=== PATIENT | female | born 1985 | race Caucasian/White ===

== ENCOUNTER 2016-09-10 14:40 | Emergency (ER) | payer SELFPAY ==
[~2016-09-10] VITALS: Ht 162.6 cm; Wt 90.7 kg
[~2016-09-10 14:40] MED LIST: BENZ11.92 MM; CLIN150C17 PO; CLIN300C11 PO; CRUT1EAC7 MC; Flexeril PO; HYDR-3729 PO; HYDR-757 PO; IBUP-1780 PO; IBUP-2055 PO; L.AC1CAP6 PO; NYST1000 PO; ONDA8TAB9 PO; OXYC-202 PO; OXYC-465 PO; TRAM50TA2 PO; VANC125C11 PO
--- OUTSIDE RECORDS SUMMARY | 2016-09-10 14:45 | XMS REPORT ---
Author Author JAMES BARON [facility] D[facility] Address Unknown Care Team Providers Care Detective Private Eye Name Role Phone JAMES BARON Unavailable PROBLEMS Type Condition ICD9-CM Code [id number] Code Onset Dates Condition Status SNOMED Code Assessment Dental caries K02.9 May, Active [id number] ALLERGIES Substance Reaction Event Type Date Status Penicillin V Potassium Unknown Drug Allergy May, Active SOCIAL HISTORY No smoking Hx information available PLAN OF CARE VITAL SIGNS Blood pressure systolic 128 mmHg 2016-05-12 Blood pressure diastolic 90 mmHg 2016-05-12 MEDICATIONS Medication Instructions Dosage Frequency Start Date End Date Duration Status [place] 5-325 MG Orally every 6 hrs 1 tablet as needed 6h 4 days Active [place] 5-325 MG Orally every 6 hrs 1 tablet as needed 6h 4 days Active RESULTS No Results PROCEDURES Procedure Date Ordered Related Diagnosis Body Site EXTRAC ERUPTED TOOTH/EXPOSED ROOT May 12, 2016 IMMUNIZATIONS No Known Immunizations
--- NOTE | 2016-09-10 15:06 | ED General ---
General Chief Complaint: Dizziness/Syncope Stated Complaint: POSS SEIZURE Source of Information: Patient Exam Limitations: No Limitations History of Present Illness Time Seen by Provider: 15:04 Initial Comments To ER with reports of possible seizure. She states that she was at work today when she became very nauseous and "blacked out". She never vomited or felt the floor. Her nurse at work told her that she may have had a seizure. She states that she does have a seizure history in that her seizures are brought on by "anxiety". 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 She has not missed any doses and does not feel anxious. Timing/Duration: 1/2 Hour Severity: Moderate Allergies and Home Medications Allergies Coded Allergies: latex (Verified Allergy, Severe, RASH/HIVES/SWELLING, 12/10/15) Penicillins (Verified Allergy, Unknown, 12/10/15) Home Medications #10 5 MG PO TID PRN PRN PAIN Prescribed by: HECTOR LOPEZ on 04/29/16 1805 (Reported) Alprazolam 1 Mg Tablet 1 MG PO BID (Reported) Benzocaine 11.9 Gm Paste..g. #1 11.9 GM MM QID Prescribed by: VALENTIN SALGUERO on 12/21/15 1030 Bupropion HCl 150 Mg Tablet.er 150 MG PO (Reported) Ibuprofen 200 Mg Tablet 400 MG PO BID PRN PRN PAIN (Reported) Nystatin 100,000 Unit/1 Ml Oral.susp #1 100,000 UNIT PO QID 1 tsp swish and swallow four times daily for 7 days Prescribed by: VALENTIN SALGUERO on 12/21/15 1032 Ondansetron 8 Mg Tab.rapdis 8 MG PO Q20M (Reported) Oxycodone HCl/Acetaminophen 1 Each Tablet #60 1 TAB PO Q4H PRN PRN PAIN Prescribed by: NISHANT BHATIA on 12/21/15 0711 Vancomycin HCl 125 Mg Capsule #32 125 MG PO QID Prescribed by: NISHANT BHATIA on 12/21/15 0711 Constitutional: see HPI EENTM: see HPI Respiratory: no symptoms reported Cardiovascular: no symptoms reported Gastrointestinal: No abdominal pain, nauseaNo vomiting Genitourinary: no symptoms reported Musculoskeletal: no symptoms reported Skin: no symptoms reported Psychiatric/Neurological: No Symptoms Reported Past Ifwtliw-Ttzthg-Ilwqfq Hx Patient Social History Alcohol Use: Occasionally Uses Recreational Drug Use: No Smoking Status: Never a Smoker Recent Foreign Travel: No Contact w/Someone Who Travel: No Recent Hopitalizations: No Immunizations Up To Date Date of Influenza Vaccine: Apr 20, 2016 Seasonal Allergies Seasonal Allergies: No Surgeries HX Surgeries: Yes (D&C, KNEE) Surgeries: Abdominal, Appendectomy, Section, Orthopedic Respiratory Hx Respiratory Disorders: No Cardiovascular Hx Cardiac Disorders: No Neurological Hx Neurological Disorders: Yes ("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") Reproductive System Hx Reproductive Disorders: No Sexually Transmitted Disease: No HIV/AIDS: No Female Reproductive Disorders: Endometriosis Genitourinary Hx Genitourinary Disorders: Yes Genitourinary Disorders: Kidney Stones Gastrointestinal Hx Gastrointestinal Disorders: Yes (H. pylori) Gastrointestinal Disorders: Diverticulosis, Gall Bladder Disease Musculoskeletal Hx Musculoskeletal Disorders: Yes (SCIATICA) Musculoskeletal Disorders: Arthritis Endocrine Hx Endocrine Disorders: No HEENT HX ENT Disorders: Yes (GLASSES) Loss of Vision: Bilateral Hearing Impairment: Denies, Hard of Hearing Cancer Hx Cancer: No Psychosocial Hx Psychiatric Problems: Yes Behavioral Health Disorders: Anxiety Integumentary HX Skin/Integumentary Disorder: No Blood Transfusions Hx Blood Disorders: Yes (ANEMIA) Adverse Reaction to a Blood Tr: No (HAS HAD BLOOD WITH NO PROBLEMS) Family Medical History Significant Family History: No Pertinent Family Hx, Diabetes, Hypertension Physical Exam Vital Signs Vital Sign - Last 12Hours 09/10/16 14:57 Temp 97.2 Pulse 86 Resp 16 B/P 138/104 Pulse Ox 98 Capillary Refill : General Appearance: No Apparent Distress WD/WN Eyes: Bilateral Eye EOMI, Bilateral Eye Normal Inspection, Bilateral Eye PERRL HEENT: PERRL/EOMI TMs Normal Neck: Full Range of Motion Normal Inspection Respiratory: Normal Breath Sounds No Accessory Muscle Use No Respiratory Distress Cardiovascular: Regular Rate, Rhythm Normal Peripheral Pulses Gastrointestinal: Non Tender Soft Extremity: Normal Capillary Refill Normal Inspection Neurologic/Psychiatric: Alert Oriented x3 Skin: Normal Color Warm/Dry Progress/Results/Core Measures Results/Orders Lab Results Laboratory Tests Test 09/10/16 15:00 09/10/16 15:39 Range/Units Alanine Aminotransferase (ALT/SGPT) 26 0-55 U/L Albumin 4.1 3.2-4.5 G/DL Alkaline Phosphatase 56 40-136 U/L Anion Gap 9 5-14 MMOL/L Aspartate Amino Transf (AST/SGOT) 18 5-34 U/L BUN/Creatinine Ratio 12 Basophils # (Auto) 0.0 0.0-0.1 10^3/uL Basophils (%) (Auto) 0 0-10 % Blood Urea Nitrogen 9 7-18 MG/DL Calcium Level 9.1 8.5-10.1 MG/DL Carbon Dioxide Level 20 L 21-32 MMOL/L Chloride Level 110 H 98-107 MMOL/L Creatinine 0.76 0.60-1.30 MG/DL Eosinophils # (Auto) 0.3 0.0-0.3 10^3/uL Eosinophils (%) (Auto) 3 0-10 % Estimat Glomerular Filtration Rate > 60 Glucose Level 97 70-105 MG/DL Hematocrit 41 35-52 % Hemoglobin 14.1 11.5-16.0 G/DL Lymphocytes # (Auto) 1.7 1.0-4.0 X 10^3 Lymphocytes (%) (Auto) 18 12-44 % Mean Corpuscular Hemoglobin 30 25-34 PG Mean Corpuscular Hemoglobin Concent 35 32-36 G/DL Mean Corpuscular Volume 87 80-99 FL Mean Platelet Volume 11.2 H 7.4-10.4 FL Monocytes # (Auto) 0.7 0.0-1.0 X 10^3 Monocytes (%) (Auto) 7 0-12 % Neutrophils # (Auto) 6.9 1.8-7.8 X 10^3 Neutrophils (%) (Auto) 72 42-75 % Platelet Count 217 130-400 10^3/uL Potassium Level 3.8 3.6-5.0 MMOL/L Red Blood Count 4.66 4.35-5.85 10^6/uL Red Cell Distribution Width 12.9 10.0-14.5 % Serum Alcohol < 10 <10 MG/DL Sodium Level 139 135-145 MMOL/L Total Bilirubin 0.4 0.1-1.0 MG/DL Total Protein 7.0 6.4-8.2 G/DL White Blood Count 9.6 4.3-11.0 10^3/uL Ur Tricyclic Antidepressants Screen NEGATIVE NEGATIVE Urine Amphetamines Screen NEGATIVE NEGATIVE Urine Bacteria MODERATE H /HPF Urine Barbiturates Screen NEGATIVE NEGATIVE Urine Benzodiazepines Screen POSITIVE H NEGATIVE Urine Bilirubin NEGATIVE NEGATIVE Urine Cannabinoids Screen NEGATIVE NEGATIVE Urine Casts NONE /LPF Urine Clarity SLIGHTLY CLOUDY Urine Cocaine Screen NEGATIVE NEGATIVE Urine Color YELLOW Urine Crystals NONE /LPF Urine Culture Indicated NO Urine Glucose (UA) NEGATIVE NEGATIVE Urine Ketones NEGATIVE NEGATIVE Urine Leukocyte Esterase 1+ H NEGATIVE Urine Methadone Screen NEGATIVE NEGATIVE Urine Methamphetamines Screen NEGATIVE NEGATIVE Urine Mucus NEGATIVE /LPF Urine Nitrite NEGATIVE NEGATIVE Urine Opiates Screen NEGATIVE NEGATIVE Urine Oxycodone Screen NEGATIVE NEGATIVE Urine Phencyclidine Screen NEGATIVE NEGATIVE Urine Propoxyphene Screen NEGATIVE NEGATIVE Urine Protein NEGATIVE NEGATIVE Urine RBC NONE /HPF Urine RBC (Auto) NEGATIVE NEGATIVE Urine Specific [place] 1.010 L 1.016-1.022 Urine Squamous Epithelial Cells 0-2 /HPF Urine Urobilinogen NORMAL NORMAL MG/DL Urine WBC NONE /HPF Urine pH 7 5-9 My Orders Orders-HECTOR LOPEZ APRN Cbc With Automated Diff (09/10/16 15:02) Comprehensive Metabolic Panel (09/10/16 15:02) Ua Culture If Indicated (09/10/16 15:02) Urine Bedside (09/10/16 15:02) Drug Screen Stat (Urine) (09/10/16 15:02) Alcohol (09/10/16 15:02) Saline Lock/Iv-Start (09/10/16 15:02) Ns Iv 1000 Ml (Sodium Chloride 0.9%) (09/10/16 15:15) Ondansetron Injection (Zofran Injectio (09/10/16 15:15) Medications Given in ED Current Medications Medications Dose Ordered Sig/Graeme Route Start Time Stop Time Status Last Admin Dose Admin Ondansetron HCl 4 mg ONCE ONCE IVP 09/10/16 15:15 09/10/16 15:16 DC 09/10/16 15:39 4 MG Vital Signs/I&O Vital Sign - Last 12Hours 09/10/16 14:57 Temp 97.2 Pulse 86 Resp 16 B/P 138/104 Pulse Ox 98 Departure Impression Impression: Primary Impression: Nausea Additional Impression: Weak Disposition: 01 HOME, SELF-CARE Condition: Stable Departure-Patient Inst. Decision time for Depature: 16:24 Referrals: [facility] (PCP/Family) Primary Care Physician Patient Instructions: NO INSTRUCTIONS GIVEN Add. Discharge Instructions: 1. Return to ER for any concerns 2. Nausea medication as needed 3. All discharge instructions reviewed with patient and/or family. Voiced understanding. Scripts Ondansetron (Zofran Odt)8 Mg Tab.rapdis8 Mg PO Q4H PRN NAUSEA/VOMITING #10 TAB Prov:HECTOR LOPEZ APRN 09/10/16 Work/School Note: Work Release Form Date Seen in the Emergency Department: Sep 10, 2016 Return to Work: Sep 12, 2016 Restrictions: No Restrictions HECTOR LOPEZ APRN Sep 10, 2016 15:06
[2016-09-10] MEDS ORDERED: BUPR150T9 PO (15:09)
[2016-09-10] MEDS ORDERED: ALPR1TAB2 PO (15:09)
[2016-09-10] MEDS ORDERED: SEROQUEL (15:09)
[2016-09-10 15:15] LABS: BASOPHILS % (AUTO) 0 % (0-10); EOSINOPHILS # (AUTO) 0.3 10^3/uL (0.0-0.3); EOSINOPHILS % (AUTO) 3 % (0-10); LYMPHOCYTES # (AUTO) 1.7 X 10^3 (1.0-4.0); LYMPHOCYTES % (AUTO) 18 % (12-44); MEAN CORPUSCULAR HEMOGLOBIN 30 PG (25-34); MEAN CORPUSCULAR HGB CONC 35 G/DL (32-36); MEAN CORPUSCULAR VOLUME 87 FL (80-99); MEAN PLATELET VOLUME 11.2 FL (7.4-10.4); MONOCYTES # (AUTO) 0.7 X 10^3 (0.0-1.0); MONOCYTES % (AUTO) 7 % (0-12); NEUTROPHILS # (AUTO) 6.9 X 10^3 (1.8-7.8); NEUTROPHILS % (AUTO) 72 % (42-75); PLATELET COUNT 217 10^3/uL (130-400); RED BLOOD COUNT 4.66 10^6/uL (4.35-5.85); RED CELL DISTRIBUTION WIDTH 12.9 % (10.0-14.5); WHITE BLOOD COUNT 9.6 10^3/uL (4.3-11.0)
[2016-09-10 15:32] LABS: ALANINE AMINOTRANSFERASE 26 U/L (0-55); ALBUMIN 4.1 G/DL (3.2-4.5); ANION GAP 9 MMOL/L (5-14); ASPARTATE AMINO TRANSFERASE 18 U/L (5-34); BILIRUBIN,TOTAL 0.4 MG/DL (0.1-1.0); BLOOD UREA NITROGEN 9 MG/DL (7-18); BUN/CREATININE RATIO 12; CALCIUM 9.1 MG/DL (8.5-10.1); CARBON DIOXIDE 20 MMOL/L (21-32); CHLORIDE 110 MMOL/L (98-107); CREATININE SERUM 0.76 MG/DL (0.60-1.30); GFR ESTIMATED > 60; GLUCOSE 97 MG/DL (70-105); POTASSIUM 3.8 MMOL/L (3.6-5.0); SODIUM 139 MMOL/L (135-145)
[2016-09-10 15:34] LABS: ALCOHOL < 10 MG/DL (<10)
[2016-09-10] MEDS: ONDANSETRON 4 MG/2 ML (SDV) Z0FRAN IVP ONE (15:39)
[2016-09-10] MEDS: NS IV 1000 ML 1,000 ML IV SCH (15:40)
[2016-09-10 16:01] LABS: BILIRUBIN,URINE NEGATIVE (NEGATIVE); KETONES,URINE NEGATIVE (NEGATIVE); LEUKOCYTE ESTERASE ,URINE 1+ (NEGATIVE); NITRITE,URINE NEGATIVE (NEGATIVE); PH,URINE 7 (5-9); PROTEIN,URINE NEGATIVE (NEGATIVE); UROBILINOGEN,URINE NORMAL (NORMAL)
[2016-09-10 16:02] LABS: SQUAMOUS EPITHELIAL CELL,UR 0-2 /HPF
[2016-09-10] MEDS ORDERED: ONDA8TAB9 PO (16:25)
[2016-09-10 16:33] VITALS: BP 124/89
== END 2016-09-10 16:32 | disposition home or self-care (01) ==
LOC: EDUNIT# 14:40 → ER 14:42
DX: R11.0 Nausea (principal); R53.1 Weakness; F41.9 Anxiety disorder, unspecified; Z79.899 Other long term (current) drug therapy
CPT/HCPCS: 36415; 80053; 80306; 80320; 81000; 84703; 85025; 96374

== ENCOUNTER 2016-11-15 10:07 | Emergency (ER) | payer SELFPAY ==
[~2016-11-15] VITALS: Ht 162.6 cm; Wt 90.7 kg
[~2016-11-15 10:07] MED LIST changes: +ALPR1TAB2 PO; +BUPR150T9 PO; +SEROQUEL
[2016-11-15] MEDS ORDERED: TOPI50TA37 PO (10:54)
[2016-11-15 11:36] LABS: BILIRUBIN,URINE NEGATIVE (NEGATIVE); KETONES,URINE NEGATIVE (NEGATIVE); LEUKOCYTE ESTERASE ,URINE NEGATIVE (NEGATIVE); NITRITE,URINE NEGATIVE (NEGATIVE); PH,URINE 7 (5-9); PROTEIN,URINE NEGATIVE (NEGATIVE); UROBILINOGEN,URINE NORMAL (NORMAL)
--- NOTE | 2016-11-15 11:38 | ED GI ---
General Chief Complaint: Abdominal/GI Problems Stated Complaint: ABD PAIN/CRAMPING Nursing Triage Note: C/O ABD ISSUES LASTING FOR A FEW WEEKS W/DIARRHEA. TOOK IMODIUM ET ZOFRAN, STATES IT DID NOT HELP. C/O OF NAUSEA ET WEAKNESS STARTING TODAY. Sepsis Screen: No Definite Risk Source of Information: Patient Exam Limitations: No Limitations History of Present Illness Time Seen By Provider: 11:37 Initial Comments To ER with watery diarrhea with occasional blood for the past 3 weeks. She has diffuse abdominal cramping she states that she's also been nauseated. She does have a history of C. difficile last year. She states that one month prior to the onset of this diarrhea she finished a course of antibiotics for a tooth infection. Timing/Duration: Intermittent Severity/Quality: Moderate Location: Generalized Abdomen Radiation: No Radiation Activities at Onset: None Associated Symptoms: Nausea/Vomiting Allergies and Home Medications Allergies Coded Allergies: latex (Verified Allergy, Severe, RASH/HIVES/SWELLING, 12/10/15) Penicillins (Verified Allergy, Unknown, 12/10/15) Home Medications Alprazolam 1 Mg Tablet, 1 MG PO BID, (Reported) Bupropion HCl 150 Mg Tablet.er, 150 MG PO, (Reported) Ibuprofen 200 Mg Tablet, 400 MG PO BID PRN for PAIN, (Reported) Lactobacillus Combination No.4 1 Each Capsule, 1 EACH PO TID, #21 Prescribed by: HECTOR LOPEZ on 11/15/16 1345 Metronidazole 500 Mg Tablet, 500 MG PO TID, #30 Prescribed by: HECTOR LOPEZ on 11/15/16 1345 Ondansetron 8 Mg Tab.rapdis, 8 MG PO Q20M, (Reported) Topiramate 50 Mg Tablet, 50 MG PO DAILY, (Reported) [Seroquel] , (Reported) Review of Systems Constitutional: see HPI, No chills, No fever EENTM: No Symptoms Reported Respiratory: No Symptoms Reported Cardiovascular: No Symptoms Reported Gastrointestinal: See HPI, Abdominal Pain, Denies Constipated, Diarrhea, Nausea Genitourinary: No Symptoms Reported Musculoskeletal: no symptoms reported Skin: no symptoms reported Psychiatric/Neurological: No Symptoms Reported Endocrine: No Symptoms Reported Past Ripscnl-Kmakwb-Kufpcj Hx Patient Social History Alcohol Use: Occasionally Uses Recreational Drug Use: No Smoking Status: Never a Smoker 2nd Hand Smoke Exposure: No Recent Foreign Travel: No Contact w/Someone Who Travel: No Recent Infectious Disease Expo: No Recent Hopitalizations: No Immunizations Up To Date Date of Influenza Vaccine: Apr 20, 2016 Seasonal Allergies Seasonal Allergies: No Surgeries HX Surgeries: Yes (D&C, KNEE) Surgeries: Abdominal, Appendectomy, Section, Orthopedic Respiratory Hx Respiratory Disorders: No Cardiovascular Hx Cardiac Disorders: No Neurological Hx Neurological Disorders: Yes ("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") Reproductive System : No Hx Reproductive Disorders: No Sexually Transmitted Disease: No HIV/AIDS: No Female Reproductive Disorders: Endometriosis Genitourinary Hx Genitourinary Disorders: Yes Genitourinary Disorders: Kidney Stones Gastrointestinal Hx Gastrointestinal Disorders: Yes (H. pylori) Gastrointestinal Disorders: Diverticulosis, Gall Bladder Disease Musculoskeletal Hx Musculoskeletal Disorders: Yes (SCIATICA) Musculoskeletal Disorders: Arthritis Endocrine Hx Endocrine Disorders: No HEENT HX ENT Disorders: Yes (GLASSES) Loss of Vision: Bilateral Hearing Impairment: Denies, Hard of Hearing Cancer Hx Cancer: No Psychosocial Hx Psychiatric Problems: Yes Behavioral Health Disorders: Anxiety Integumentary HX Skin/Integumentary Disorder: No Blood Transfusions Hx Blood Disorders: Yes (ANEMIA) Adverse Reaction to a Blood Tr: No (HAS HAD BLOOD WITH NO PROBLEMS) Family Medical History Significant Family History: No Pertinent Family Hx, Diabetes, Hypertension Physical Exam Vital Signs VS - Last 72 Hours, by Label 11/15/16 10:46 Temp 98.5 Pulse 97 Resp 18 B/P (MAP) 131/87 O2 Delivery Room Air Capillary Refill : Less Than 3 Seconds General Appearance: WD/WN, no apparent distress HEENT: PERRL/EOMI, normal ENT inspection Neck: non-tender, full range of motion Respiratory: no respiratory distress, no accessory muscle use Gastrointestinal: normal bowel sounds, non tender, soft Extremities: normal range of motion, non-tender Neurologic/Psychiatric: alert, normal mood/affect, oriented x 3 Skin: normal color, warm/dry Progress/Results/Core Measures Results/Orders Lab Results Laboratory Tests Test 11/15/16 11:25 11/15/16 11:50 Range/Units Urine Color YELLOW Urine Clarity SLIGHTLY CLOUDY Urine pH 7 5-9 Urine Specific [place] 1.010 L 1.016-1.022 Urine Protein NEGATIVE NEGATIVE Urine Glucose (UA) NEGATIVE NEGATIVE Urine Ketones NEGATIVE NEGATIVE Urine Nitrite NEGATIVE NEGATIVE Urine Bilirubin NEGATIVE NEGATIVE Urine Urobilinogen NORMAL NORMAL MG/DL Urine Leukocyte Esterase NEGATIVE NEGATIVE Urine RBC (Auto) NEGATIVE NEGATIVE Urine RBC NONE /HPF Urine WBC RARE /HPF Urine Squamous Epithelial Cells 5-10 /HPF Urine Crystals NONE /LPF Urine Bacteria TRACE /HPF Urine Casts NONE /LPF Urine Mucus NEGATIVE /LPF Urine Culture Indicated NO Urine Opiates Screen NEGATIVE NEGATIVE Urine Oxycodone Screen NEGATIVE NEGATIVE Urine Methadone Screen NEGATIVE NEGATIVE Urine Propoxyphene Screen NEGATIVE NEGATIVE Urine Barbiturates Screen NEGATIVE NEGATIVE Ur Tricyclic Antidepressants Screen NEGATIVE NEGATIVE Urine Phencyclidine Screen NEGATIVE NEGATIVE Urine Amphetamines Screen NEGATIVE NEGATIVE Urine Methamphetamines Screen NEGATIVE NEGATIVE Urine Benzodiazepines Screen POSITIVE H NEGATIVE Urine Cocaine Screen NEGATIVE NEGATIVE Urine Cannabinoids Screen NEGATIVE NEGATIVE White Blood Count 9.0 4.3-11.0 10^3/uL Red Blood Count 4.41 4.35-5.85 10^6/uL Hemoglobin 13.5 11.5-16.0 G/DL Hematocrit 39 35-52 % Mean Corpuscular Volume 89 80-99 FL Mean Corpuscular Hemoglobin 31 25-34 PG Mean Corpuscular Hemoglobin Concent 34 32-36 G/DL Red Cell Distribution Width 12.7 10.0-14.5 % Platelet Count 241 130-400 10^3/uL Mean Platelet Volume 10.9 H 7.4-10.4 FL Neutrophils (%) (Auto) 71 42-75 % Lymphocytes (%) (Auto) 20 12-44 % Monocytes (%) (Auto) 5 0-12 % Eosinophils (%) (Auto) 3 0-10 % Basophils (%) (Auto) 0 0-10 % Neutrophils # (Auto) 6.4 1.8-7.8 X 10^3 Lymphocytes # (Auto) 1.8 1.0-4.0 X 10^3 Monocytes # (Auto) 0.5 0.0-1.0 X 10^3 Eosinophils # (Auto) 0.3 0.0-0.3 10^3/uL Basophils # (Auto) 0.0 0.0-0.1 10^3/uL Sodium Level 138 135-145 MMOL/L Potassium Level 4.2 3.6-5.0 MMOL/L Chloride Level 111 H 98-107 MMOL/L Carbon Dioxide Level 22 21-32 MMOL/L Anion Gap 5 5-14 MMOL/L Blood Urea Nitrogen 10 7-18 MG/DL Creatinine 0.74 0.60-1.30 MG/DL Estimat Glomerular Filtration Rate > 60 BUN/Creatinine Ratio 14 Glucose Level 90 70-105 MG/DL Calcium Level 8.6 8.5-10.1 MG/DL Total Bilirubin 0.3 0.1-1.0 MG/DL Aspartate Amino Transf (AST/SGOT) 16 5-34 U/L Alanine Aminotransferase (ALT/SGPT) 23 0-55 U/L Alkaline Phosphatase 56 40-136 U/L Total Protein 6.9 6.4-8.2 G/DL Albumin 4.1 3.2-4.5 G/DL Serum Alcohol < 10 <10 MG/DL My Orders Orders - HECTOR LOPEZ BUILDING PERFORMANCE CONSULTANT Cbc With Automated Diff (11/15/16 11:28) Comprehensive Metabolic Panel (11/15/16 11:28) Ua Culture If Indicated (11/15/16 11:28) Urine Bedside (11/15/16 11:28) Saline Lock/Iv-Start (11/15/16 11:28) Drug Screen Stat (Urine) (11/15/16 11:35) Lactated Ringers (Lr 1000 Ml Iv Solution (11/15/16 11:45) C Difficile Ag + Toxin A/B. (11/15/16 11:35) Alcohol (11/15/16 11:38) Ct Abdomen/Pelvis W (11/15/16 12:19) Iohexol Injection (Omnipaque 350 Mg/Ml 1 (11/15/16 12:30) Sodium Chloride Flush (Catheter Flush Sy (11/15/16 12:30) Ns (Ivpb) (Sodium Chloride 0.9% Ivpb Bag (11/15/16 12:30) Medications Given in ED Current Medications Medications Dose Ordered Sig/Graeme Route Start Time Stop Time Status Last Admin Dose Admin Iohexol 100 ml ONCE ONCE IV 11/15/16 12:30 11/15/16 12:31 DC 11/15/16 13:15 100 ML Sodium Chloride 10 ml NEEDED PRN IV 11/15/16 12:30 11/15/16 13:15 10 ML Sodium Chloride 100 ml ONCE ONCE IV 11/15/16 12:30 11/15/16 12:31 DC 11/15/16 13:15 80 ML Vital Signs/I&O Vital Sign - Last 12Hours 11/15/16 10:46 Temp 98.5 Pulse 97 Resp 18 B/P (MAP) 131/87 O2 Delivery Room Air Blood Pressure Mean: 102 Point of Care Testing Urine -Bedside: Negative Progress Note : Progress Note 1346-unable to provide stool sample while here. ECG Initial ECG Impression Date: November 15, 2016 Departure Communication Progress Notes We will treat with Flagyl empirically pending a C. difficile stool sample given her history of C. difficile. Impression Impression: Primary Impression: Colitis presumed infectious Disposition: HOME, SELF-CARE Condition: Stable Departure-Patient Inst. Decision time for Depature: 13:23 Referrals: [facility] (PCP/Family) Primary Care Physician Patient Instructions: Diarrhea and Traveler's Diarrhea, Adult (DC) Add. Discharge Instructions: 1. Drink plenty of fluids 2. Antibiotics as directed 3. Return to ER for any concerns All discharge instructions reviewed with patient and/or family. Voiced understanding. Scripts Lactobacillus Combination No.4 (Probiotic) 1 Each Capsule 1 EACH PO TID, #21 CAP Prov: HECTOR LOPEZ BUILDING PERFORMANCE CONSULTANT 11/15/16 Metronidazole (Flagyl) 500 Mg Tablet 500 MG PO TID, #30 TAB Prov: HECTOR LOPEZ APRN 11/15/16 HECTOR LOPEZ APRN November 15, 2016 11:38
[2016-11-15] MEDS ORDERED: LACTATED RINGERS 1,000 ML IV SCH (11:45)
[2016-11-15 11:56] LABS: WBC,URINE RARE /HPF
[2016-11-15 12:00] LABS: BASOPHILS % (AUTO) 0 % (0-10); EOSINOPHILS # (AUTO) 0.3 10^3/uL (0.0-0.3); EOSINOPHILS % (AUTO) 3 % (0-10); LYMPHOCYTES # (AUTO) 1.8 X 10^3 (1.0-4.0); LYMPHOCYTES % (AUTO) 20 % (12-44); MEAN CORPUSCULAR HEMOGLOBIN 31 PG (25-34); MEAN CORPUSCULAR HGB CONC 34 G/DL (32-36); MEAN CORPUSCULAR VOLUME 89 FL (80-99); MEAN PLATELET VOLUME 10.9 FL (7.4-10.4); MONOCYTES # (AUTO) 0.5 X 10^3 (0.0-1.0); MONOCYTES % (AUTO) 5 % (0-12); NEUTROPHILS # (AUTO) 6.4 X 10^3 (1.8-7.8); NEUTROPHILS % (AUTO) 71 % (42-75); PLATELET COUNT 241 10^3/uL (130-400); RED BLOOD COUNT 4.41 10^6/uL (4.35-5.85); RED CELL DISTRIBUTION WIDTH 12.7 % (10.0-14.5)
[2016-11-15 12:20] LABS: ALANINE AMINOTRANSFERASE 23 U/L (0-55); ALBUMIN 4.1 G/DL (3.2-4.5); ANION GAP 5 MMOL/L (5-14); ASPARTATE AMINO TRANSFERASE 16 U/L (5-34); BILIRUBIN,TOTAL 0.3 MG/DL (0.1-1.0); BLOOD UREA NITROGEN 10 MG/DL (7-18); BUN/CREATININE RATIO 14; CALCIUM 8.6 MG/DL (8.5-10.1); CARBON DIOXIDE 22 MMOL/L (21-32); CHLORIDE 111 MMOL/L (98-107); CREATININE SERUM 0.74 MG/DL (0.60-1.30); GFR ESTIMATED > 60; GLUCOSE 90 MG/DL (70-105); POTASSIUM 4.2 MMOL/L (3.6-5.0); SODIUM 138 MMOL/L (135-145); TOTAL PROTEIN 6.9 G/DL (6.4-8.2)
[2016-11-15 12:23] LABS: ALCOHOL < 10 MG/DL (<10)
[2016-11-15] MEDS ORDERED: CATHETER FLUSH 10 ML SYR IV PRN (12:30)
[2016-11-15] MEDS ORDERED: IOHEXOL 350 MG/ML 100 ML (OMNIPAQUE 350) VIAL IV ONE (12:30)
[2016-11-15] MEDS ORDERED: NS 100 ML (IVPB) BAG IV ONE (12:30)
--- NOTE | 2016-11-15 13:39 | Diagnostic Imaging Report ---
PROCEDURE: CT abdomen and pelvis with contrast. TECHNIQUE: Multiple contiguous axial images were obtained through the abdomen and pelvis after administration of intravenous contrast. INDICATION: Abdominal pain and cramping. Diarrhea. Vomiting. COMPARISON: 12/09/2015. FINDINGS: Included views of the lung bases are clear. CT abdomen: Normal appendix cannot be adequately identified, but appears to be surgically absent. Small bowel loops are nondistended. The kidneys, adrenal glands, spleen, pancreas, and liver have a normal CT appearance. There is no loculated fluid collection, free fluid or free air within the abdomen. No abnormal mesenteric or retroperitoneal adenopathy is seen. Bony structures show no acute abnormalities. CT pelvis: Urinary bladder is grossly unremarkable. There is a small amount of free fluid within the pelvis. No loculated fluid collection or free air is identified. Bony structures show no acute abnormalities. IMPRESSION: 1. Small amount of free fluid in the pelvis, which may be physiologic. 2. No loculated fluid collection or free air within the abdomen or pelvis. 3. No other acute abnormalities within the abdomen or pelvis. Dictated by: Dictated on workstation # [id number]
[2016-11-15] MEDS ORDERED: LACT1CAP74 PO (13:45)
[2016-11-15] MEDS ORDERED: METR500T PO (13:45)
[2016-11-15 14:01] VITALS: BP 131/87
== END 2016-11-15 14:01 | disposition home or self-care (01) ==
LOC: EDUNIT# 10:07 → ER 10:09
DX: K52.9 Noninfective gastroenteritis and colitis, unspecified (principal); R11.0 Nausea; K57.30 Diverticulosis of large intestine without perforation or abscess without bleeding
CPT/HCPCS: 36415; 74177; 80053; 80306; 80320; 81000; 84703; 85025; 96360

== ENCOUNTER 2019-08-28 19:43 | Emergency (ER) | payer OTHER ==
[~2019-08-28] VITALS: Ht 165 cm; Wt 110.0 kg
[~2019-08-28 19:43] MED LIST changes: +HYDR-4226 PO; -HYDR-757 PO; -IBUP-2055 PO; +IBUP-2473 PO; +LACT1CAP74 PO; +METR500T PO; -OXYC-202 PO; +OXYC1TAB12 PO; +TOPI50TA37 PO; -TRAM50TA2 PO; +TRM50T PO
--- NOTE | 2019-08-28 20:13 | NUR ---
pt to [facility]. health.
--- NOTE | 2019-08-28 20:41 | ED Upper Extremity ---
General Chief Complaint: Laceration Stated Complaint: LEFT HAND LACERATION Nursing Triage Note: left 5th finger laceration. Nursing Sepsis Screen: No Definite Risk Source: patient Exam Limitations: no limitations History of Present Illness Date Seen by Provider: Aug 28, 2019 Time Seen by Provider: 20:40 Initial Comments Laceration left pinky finger from safety knife at work at [employer]. Tetanus up-to-date. Onset: just prior to arrival Severity: mild Pain/Injury Location: left 5th finger Modifying Factors: Worse With Movement Allergies and Home Medications Allergies Coded Allergies: latex (Verified Allergy, Severe, RASH/HIVES/SWELLING, 12/10/15) Penicillins (Verified Allergy, Unknown, 12/10/15) Home Medications Alprazolam 1 Mg Tablet, 1 MG PO BID, (Reported) Ibuprofen 200 Mg Tablet, 400 MG PO BID PRN for PAIN, (Reported) Lactobacillus Combination No.4 1 Each Capsule, 1 EACH PO TID Prescribed by: HECTOR LOPEZ on 11/15/16 1345 Metronidazole 500 Mg Tablet, 500 MG PO TID Prescribed by: HECTOR LOPEZ on 11/15/16 1345 Ondansetron 8 Mg Tab.rapdis, 8 MG PO Q20M, (Reported) Topiramate 50 Mg Tablet, 50 MG PO DAILY, (Reported) Patient Home Medication List Home Medication List Reviewed: Yes Review of Systems Constitutional: see HPI EENTM: see HPI Respiratory: no symptoms reported Cardiovascular: no symptoms reported Genitourinary: no symptoms reported Musculoskeletal: no symptoms reported Skin: see HPI Psychiatric/Neurological: No Symptoms Reported Past Zayqzjt-Zyohtt-Olrqfm Hx Patient Social History Alcohol Use: Occasionally Uses Number of Drinks Today: Alcohol Beverage of Choice: Wine Recreational Drug Use: No Smoking Status: Never a Smoker 2nd Hand Smoke Exposure: No Recent Foreign Travel: No Contact w/Someone Who Travel: No Recent Infectious Disease Expo: No Recent Hopitalizations: No Physical Abuse: No Sexual Abuse: No Mistreated: No Fear: No Immunizations Up To Date Tetanus Booster (TDap): Less than 5yrs Date of Influenza Vaccine: Apr 20, 2016 Seasonal Allergies Seasonal Allergies: No Past Medical History Surgeries: Yes (D&C, KNEE) Abdominal, Appendectomy, Section, Orthopedic Respiratory: No Cardiac: No 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") Seizure Disorder : No Reproductive Disorders: No Female Reproductive Disorders: Endometriosis Sexually Transmitted Disease: No HIV/AIDS: No Genitourinary: Yes Kidney Stones Gastrointestinal: Yes Diverticulosis, Gall Bladder Disease Musculoskeletal: Yes Arthritis Endocrine: No HEENT: Yes Loss of Vision: Bilateral Hearing Impairment: Denies, Hard of Hearing Cancer: Yes Cervical Psychosocial: Yes Anxiety Integumentary: No Blood Disorders: Yes (ANEMIA) Adverse Reaction/Blood Tranf: No Family Medical History No Pertinent Family Hx, Diabetes, Hypertension Physical Exam Vital Signs Vital Signs - First Documented 08/28/19 19:50 Temp 36.8 Pulse 99 Resp 18 B/P (MAP) 147/94 (111) Pulse Ox 99 O2 Delivery Room Air Capillary Refill : Less Than 3 Seconds Height, Weight, BMI Height: 5'4" Weight: 200lbs. 0.0oz. 90.859286yl; 40.00 BMI Method:Stated General Appearance: WD/WN, no apparent distress HEENT: PERRL/EOMI, normal ENT inspection Respiratory: no respiratory distress, no accessory muscle use Shoulder: normal inspection, non-tender Elbow/Forearm: normal inspection, non-tender, Left Hand: laceration (normal flexion ability of the finger, laceration to the pad distal aspect of the middle phalanx right pinky. This was scrubbed with chlorhexidine/saline solution and closed with skin glue.) Neurologic/Tendon: normal sensation Neurologic/Psychiatric: alert, normal mood/affect, oriented x 3 Skin: normal color, warm/dry Progress/Results/Core Measures Results/Orders Vital Signs/I&O 08/28/19 19:50 Temp 36.8 Pulse 99 Resp 18 B/P (MAP) 147/94 (111) Pulse Ox 99 O2 Delivery Room Air Blood Pressure Mean: 111 Departure Impression Primary Impression: Finger laceration Qualified Codes: S61.216A - Laceration without foreign body of right little finger without damage to nail, initial encounter Disposition: 01 HOME, SELF-CARE Condition: Stable Departure-Patient Inst. Decision time for Depature: 20:49 Referrals: [facility] (PCP/Family) Primary Care Physician Patient Instructions: Laceration Repair With Glue (DC) Add. Discharge Instructions: 1. Allow the glue to follow off on its own in about 5 days. Return to ER for any concerns. All discharge instructions reviewed with patient and/or family. Voiced understanding. HECTOR LOPEZ APRN Aug 28, 2019:40
[2019-08-28 20:55] VITALS: BP 147/94
== END 2019-08-28 20:55 | disposition home or self-care (01) ==
LOC: EDUNIT# 19:43 → ER 19:45
DX: S61.216A Laceration without foreign body of right little finger without damage to nail, initial encounter (principal); F41.9 Anxiety disorder, unspecified; G40.909 Epilepsy, unspecified, not intractable, without status epilepticus; Z91.040 Latex allergy status; Z88.0 Allergy status to penicillin; Z85.41 Personal history of malignant neoplasm of cervix uteri; W26.0XXA Contact with knife, initial encounter
CPT/HCPCS: 12001

== ENCOUNTER → 2020-03-14 | Outpatient (CLI) | payer MEDICAID ==
[~2020-03-14] MED LIST changes: -OXYC-465 PO; +OXYC-556 PO
--- NOTE | 2020-03-14 14:37 | Diagnostic Imaging Report ---
PROCEDURE: US OB SINGLE FETUS <14 WKS. TECHNIQUE: Multiple real-time grayscale images were obtained over the gravid uterus in various projections. INDICATION: Unsure dates. FINDINGS: The uterus measures 15.9 x 7.7 x 10.2 cm. There is an intrauterine gestational sac containing a pole. measurements are consistent with approximately 11 weeks 4 days gestation. heart rate was recorded at 161 bpm. Placenta appears to be developing posteriorly. There is an area of hypoechogenicity identified in the anterior uterus approximately 3 cm in size. This may represent a fibroid. Ovaries are not visualized. No adnexal mass or free fluid is seen. IMPRESSION: 1. Single live IUP of approximately 11 weeks 4 days gestational age. Estimated date of confinement sonographically is 09/29/2020. 2. Probable uterine fibroid. Dictated by: Dictated on workstation # [id number]
== END ==
LOC: RAD 13:29
PROVIDERS: ATTEND Family Medicine
DX: Z34.81 Encounter for supervision of other normal pregnancy, first trimester (principal); Z3A.11 11 weeks gestation of pregnancy
CPT/HCPCS: 76801

== ENCOUNTER 2022-11-21 21:23 | Emergency (ER) | payer MEDICAID ==
[~2022-11-21 21:23] MED LIST changes: +CLIN-144 PO; -CLIN150C17 PO; +CLIN150C20 PO; -CLIN300C11 PO
[2022-11-21] MEDS ORDERED: KETOROLAC 30 MG/ML VIAL IVP STA (21:50)
[2022-11-21 21:58] LABS: HEMATOCRIT 29 % (35-52); NEUTROPHILS # (AUTO) 6.1 10^3/uL (1.8-7.8)
[2022-11-21 22:00] LABS: BASOPHILS # (AUTO) 0.1 10^3/uL (0.0-0.1); BASOPHILS % (AUTO) 1 % (0-10); EOSINOPHILS # (AUTO) 0.3 10^3/uL (0.0-0.3); EOSINOPHILS % (AUTO) 3 % (0-10); HEMOGLOBIN 8.5 g/dL (11.5-16.0); LYMPHOCYTES # (AUTO) 2.4 10^3/uL (1.0-4.0); LYMPHOCYTES % (AUTO) 24 % (12-44); MEAN CORPUSCULAR HEMOGLOBIN 20 pg (25-34); MEAN CORPUSCULAR HGB CONC 29 g/dL (32-36); MEAN CORPUSCULAR VOLUME 67 fL (80-99); MEAN PLATELET VOLUME 11.2 fL (9.0-12.2); MONOCYTES # (AUTO) 0.9 10^3/uL (0.0-1.0); MONOCYTES % (AUTO) 9 % (0-12); NEUTROPHILS % (AUTO) 63 % (42-75); PLATELET COUNT 315 10^3/uL (130-400); WHITE BLOOD COUNT 9.7 10^3/uL (4.3-11.0)
[2022-11-21] MEDS ORDERED: ASPIRIN 81 MG CHEW (CHILDREN'S ASA) PO ONE (22:00)
[2022-11-21 22:03] LABS: ALBUMIN 4.3 GM/DL (3.2-4.5); CHLORIDE 109 MMOL/L (98-107); POTASSIUM 4.1 MMOL/L (3.6-5.0); SODIUM 138 MMOL/L (135-145)
[2022-11-21 22:04] LABS: AMYLASE 38 U/L (25-125); CALCIUM 9.2 MG/DL (8.5-10.1)
[2022-11-21 22:05] LABS: GLUCOSE 90 MG/DL (70-105)
[2022-11-21 22:06] LABS: CARBON DIOXIDE 16 MMOL/L (21-32)
[2022-11-21 22:07] LABS: BILIRUBIN,TOTAL 0.4 MG/DL (0.1-1.0); SMEAR SCAN COMMENT YES
[2022-11-21 22:08] LABS: ALKALINE PHOSPHATASE 86 U/L (40-136)
[2022-11-21 22:09] LABS: GFR ESTIMATED 116
[2022-11-21 22:10] LABS: BUN/CREATININE RATIO 10
[2022-11-21 22:12] LABS: ALANINE AMINOTRANSFERASE 83 U/L (0-55)
[2022-11-21 22:13] LABS: CREATINE KINASE 92 U/L (29-168); LIPASE 22 U/L (8-78)
[2022-11-21 22:18] LABS: PROTHROMBIN TIME PATIENT 13.3 SEC (12.2-14.7)
[2022-11-21 22:19] LABS: PARTIAL THROMBOPLASTIN TIME 31 SEC (24-35)
[2022-11-21 22:20] LABS: CREATINE KINASE MB 0.9 NG/ML (<6.6)
[2022-11-21 22:41] LABS: FIBRIN DEGRADATION PRODUCTS < 0.27 UG/ML (0.00-0.49)
--- NOTE | 2022-11-21 23:42 | ED Chest Pain ---
General Chief Complaint: Chest Pain Stated Complaint: CHEST/LEFT ARM PAIN SOA Nursing Triage Note: TO ED VIA POV AND AMBULATORY TO ROOM 6 WITH C/O CP, RIGHT ARM PAIN, LEFT ARM NUMBNESS, DIZZINESS, SOA, NAUSEA THAT STARTED AT 1900 WHEN WAKING UP FROM [facility]. PT STATES SHE TOOK RX METOPROLOL AT THAT TIME BC SBP 170s. HX HTN AND ANXIETY. RATES CP 03/13. Allergies and Home Medications Allergies Coded Allergies: latex (Verified Allergy, Severe, RASH/HIVES/SWELLING, 12/10/15) Penicillins (Verified Allergy, Unknown, 12/10/15) Patient Home Medication List Alprazolam (Xanax) 1 Mg Tablet, 1 MG PO BID, (Reported) Entered as Reported by: MACKENZIE SEQUEIRA on 09/10/16 1509 Bupropion HCl (Wellbutrin Sr) 150 Mg Tablet.er, 150 MG PO, (Reported) Entered as Reported by: MACKENZIE SEQUEIRA on 09/10/16 1509 Ibuprofen (Ibuprofen) 200 Mg Tablet, 400 MG PO BID PRN for PAIN, (Reported) Entered as Reported by: LEONID DENTON on 12/19/15 1423 Lactobacillus Combination No.4 (Probiotic) 1 Each Capsule, 1 EACH PO TID Prescribed by: HECTOR LOPEZ on 11/15/16 1345 Metronidazole (Flagyl) 500 Mg Tablet, 500 MG PO TID Prescribed by: HECTOR LOPEZ on 11/15/16 1345 Ondansetron (Zofran Odt) 8 Mg Tab.rapdis, 8 MG PO Q20M, (Reported) Entered as Reported by: GIA BARRIENTOS on 12/19/15 1124 Topiramate (Topamax) 50 Mg Tablet, 50 MG PO DAILY, (Reported) Entered as Reported by: GEORGE RUBIO on 11/15/16 1054 [Seroquel] , (Reported) Entered as Reported by: MACKENZIE SEQUEIRA on 09/10/16 1509 Past Cgluhki-Hqmtts-Zggsqq Hx Patient Social History Tobacco Use?: No Substance use?: No Alcohol Use?: Yes Alcohol Frequency: Couple times a week Immunizations Up To Date Tetanus Booster (TDap): Less than 5yrs Seasonal Allergies Seasonal Allergies: No Past Medical History Surgeries: Yes (D&C, KNEE) Abdominal, Appendectomy, Section, Orthopedic Respiratory: No Cardiac: No 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") Seizure Disorder Reproductive Disorders: No Female Reproductive Disorders: Endometriosis Sexually Transmitted Disease: No HIV/AIDS: No Genitourinary: Yes Kidney Stones Gastrointestinal: Yes Diverticulosis, Gall Bladder Disease Musculoskeletal: Yes Arthritis Endocrine: No HEENT: Yes Loss of Vision: Bilateral Hearing Impairment: Denies, Hard of Hearing Cancer: Yes Cervical Psychosocial: Yes Anxiety Integumentary: No Blood Disorders: Yes (ANEMIA) Adverse Reaction/Blood Tranf: No Family Medical History No Pertinent Family Hx, Diabetes, Hypertension Physical Exam Vital Signs Vital Signs - First Documented 11/21/22 22:29 Temp 36.5 Pulse 92 Resp 16 B/P (MAP) 150/95 (113) Pulse Ox 98 O2 Delivery Room Air Capillary Refill : Less Than 3 Seconds Height, Weight, BMI Height: 5'4" Weight: 200lbs. 0.0oz. 90.620802wp; 40.00 BMI Method:Stated Progress/Results/Core Measures Results/Orders Lab Results Laboratory Tests Test 11/21/22 21:36 Range/Units White Blood Count 9.7 4.3-11.0 10^3/uL Red Blood Count 4.35 3.80-5.11 10^6/uL Hemoglobin 8.5 L 11.5-16.0 g/dL Hematocrit 29 L 35-52 % Mean Corpuscular Volume 67 L 80-99 fL Mean Corpuscular Hemoglobin 20 L 25-34 pg Mean Corpuscular Hemoglobin Concent 29 L 32-36 g/dL Red Cell Distribution Width 18.1 H 10.0-14.5 % Platelet Count 315 130-400 10^3/uL Mean Platelet Volume 11.2 9.0-12.2 fL Immature Granulocyte % (Auto) 0 % Neutrophils (%) (Auto) 63 42-75 % Lymphocytes (%) (Auto) 24 12-44 % Monocytes (%) (Auto) 9 0-12 % Eosinophils (%) (Auto) 3 0-10 % Basophils (%) (Auto) 1 0-10 % Neutrophils # (Auto) 6.1 1.8-7.8 10^3/uL Lymphocytes # (Auto) 2.4 1.0-4.0 10^3/uL Monocytes # (Auto) 0.9 0.0-1.0 10^3/uL Eosinophils # (Auto) 0.3 0.0-0.3 10^3/uL Basophils # (Auto) 0.1 0.0-0.1 10^3/uL Immature Granulocyte # (Auto) 0.0 0.0-0.1 10^3/uL Percent Immature Platelet Fraction 7.1 0.0-7.6 % Prothrombin Time 13.3 12.2-14.7 SEC INR Comment 1.0 0.8-1.4 Activated Partial Thromboplast Time 31 24-35 SEC D-Dimer < 0.27 0.00-0.49 UG/ML Sodium Level 138 135-145 MMOL/L Potassium Level 4.1 3.6-5.0 MMOL/L Chloride Level 109 H 98-107 MMOL/L Carbon Dioxide Level 16 L 21-32 MMOL/L Anion Gap 13 5-14 MMOL/L Blood Urea Nitrogen 7 7-18 MG/DL Creatinine 0.70 0.60-1.30 MG/DL Estimat Glomerular Filtration Rate 116 BUN/Creatinine Ratio 10 Glucose Level 90 70-105 MG/DL Calcium Level 9.2 8.5-10.1 MG/DL Corrected Calcium 9.0 8.5-10.1 MG/DL Magnesium Level 2.0 1.6-2.4 MG/DL Total Bilirubin 0.4 0.1-1.0 MG/DL Aspartate Amino Transf (AST/SGOT) 82 H 5-34 U/L Alanine Aminotransferase (ALT/SGPT) 83 H 0-55 U/L Alkaline Phosphatase 86 40-136 U/L Total Creatine Kinase 92 29-168 U/L Creatine Kinase MB 0.9 <6.6 NG/ML Myoglobin 20.6 10.0-92.0 NG/ML Troponin I < 0.028 <0.028 NG/ML B-Type Natriuretic Peptide 20.1 <100.0 PG/ML Total Protein 8.0 6.4-8.2 GM/DL Albumin 4.3 3.2-4.5 GM/DL Amylase Level 38 25-125 U/L Lipase 22 8-78 U/L Serum Test, Qualitative NEGATIVE NEGATIVE Serum Alcohol 80 H <10 MG/DL Smear Scan YES My Orders Orders - SHYAM SUERO DO Alcohol (11/21/22 21:50) Drug Screen Stat (Urine) (11/21/22 21:50) Hcg,Qualitative Serum (11/21/22 21:50) Ua Culture If Indicated (11/21/22 21:50) Cbc With Automated Diff (11/21/22 21:50) Magnesium (11/21/22 21:50) Chest 1 View, Ap/Pa Only (11/21/22 21:50) Ekg Tracing (11/21/22 21:50) Comprehensive Metabolic Panel (11/21/22 21:50) Myoglobin Serum (11/21/22 21:50) Protime With Inr (11/21/22 21:50) Partial Thromboplastin Time (11/21/22 21:50) O2 (11/21/22 21:50) Monitor-Rhythm Ecg Trace Only (11/21/22 21:50) Ed Iv/Invasive Line Start (11/21/22 21:50) Creatine Kinase (11/21/22 21:50) Creatine Kinase Mb (11/21/22 21:50) Lipase (11/21/22 21:50) Amylase (11/21/22 21:50) Bnp [place] (11/21/22 21:50) Fibrin Degradation Products (11/21/22 21:50) Troponin I [place] (11/21/22 21:50) Aspirin Chewable Tablet (Baby Aspirin Ch (11/21/22 22:00) Ketorolac Injection (Toradol Injection) (11/21/22 21:50) Medications Given in ED Current Medications Medications Dose Ordered Sig/Graeme Route Start Time Stop Time Status Last Admin Dose Admin Aspirin 324 mg ONCE ONCE PO 11/21/22 22:00 11/21/22 22:01 DC 11/21/22 21:59 324 MG Vital Signs/I&O 11/21/22 22:29 Temp 36.5 Pulse 92 Resp 16 B/P (MAP) 150/95 (113) Pulse Ox 98 O2 Delivery Room Air Blood Pressure Mean: 113 Departure Impression Primary Impression: Chest pain Additional Impressions: Anxiety Anemia HTN (hypertension) Disposition: HOME, SELF-CARE Condition: Improved Departure-Patient Inst. Decision time for Depature: 23:30 Referrals: [facility] (PCP/Family) Primary Care Physician Patient Instructions: Chest Pain (DC), Anxiety, Adult ED, Anemia, Possibly From Low Iron, Adult ED, High Blood Pressure ED Add. Discharge Instructions: TAKE 81 MG ASPIRIN DAILY TAKE YOUR METOPROLOL EVERY DAY--DO NOT MISS DOSES TAKE A MULTIVITAMIN WITH IRON EVERY DAY FOLLOW UP WITH YOUR DR THIS WEEK FOR FURTHER CARE, RETURN TO ER IF SYMPTOMS RETURN All discharge instructions reviewed with patient and/or family. Voiced understanding. SHYAM SUERO DO November 21, 2022 23:42
[2022-11-21 23:53] VITALS: BP 125/83
--- NOTE | 2022-11-22 08:56 | Diagnostic Imaging Report ---
HISTORY: Chest pain COMPARISON: 09/14/2015 TECHNIQUE: Frontal view of the chest FINDINGS: Lung volumes are normal. No consolidation is seen. There is no pleural effusion or pneumothorax. There is mild cardiomegaly. IMPRESSION: 1. Mild cardiomegaly with no acute pulmonary abnormality seen. Dictated by: Dictated on workstation # [id number]
== END 2022-11-21 23:53 | disposition home or self-care (01) ==
LOC: EDUNIT# 21:23 → ER 21:25
DX: I10 Essential (primary) hypertension (principal); F41.9 Anxiety disorder, unspecified; D64.9 Anemia, unspecified; Z91.040 Latex allergy status
CPT/HCPCS: 36415; 71045; 80053; 80320; 82150; 82550; 82553; 83690; 83735; 83874; 83880; 84484; 84703; 85025; 85379; 85610; 85730; 93005; 93041